=== PATIENT | female | born 1965 | race African-American/Black ===

== ENCOUNTER 2016-06-20 14:17 | Emergency (ER) | payer BC | END 2016-06-20 14:38 | disposition home or self-care (01) | LOC: ER 14:17 | DX: S46.911A Strain of unspecified muscle, fascia and tendon at shoulder and upper arm level, right arm, initial encounter (principal); Z88.1 Allergy status to other antibiotic agents; Z91.013 Allergy to seafood; Z88.2 Allergy status to sulfonamides; W19.XXXA Unspecified fall, initial encounter | CPT/HCPCS: 73030-RT; 73060-RT; 99283 ==